=== PATIENT | female | born 1995 | race Caucasian/White ===

== ENCOUNTER 2022-01-17 17:17 | Emergency (ER) | payer OTHER, SELFPAY ==
--- NOTE | ~2022-01-17 | XR_ITS ---
EXAM: XR foot RT min 3V DATE: 01/17/2022 21:52 HISTORY: fall, neg ankle XR, pain along MT heads . COMPARISON: None available. FINDINGS: Normal mineralization. No fracture or dislocation. No lytic or blastic lesion. Joint space s and physes are maintained. No erosion or periosteal change. Soft tissue swelling over the forefoot. IMPRESSION: No acute osseous finding in the right foot. Reviewed, dictated and finalized at location K.
--- NOTE | ~2022-01-17 | XR_ITS ---
EXAM: XR ankle RT min 3V DATE: 01/17/2022 17:44 HISTORY: fall - pain . COMPARISON: None available. FINDINGS: Normal mineralization. No acute fracture or dislocation. No lytic or blastic lesion. Well- corticated ossific fragment in the lateral joint space may represent an old avulsion fracture fragmen t. Prominent os trigonum. Achilles and plantar enthesopathy. No erosion or periosteal change. Soft ti ssues within normal limits. IMPRESSION: No acute osseous finding in the right ankle. Reviewed, dictated and finalized at location K.
[2022-01-17 17:20] VITALS: BP 138/71; PULSE 101; RESP 18; TEMP 36.5; O2SAT 100
[2022-01-17] MEDS: KETOROLAC (*BKC) 60 MG/2 ML VIAL IM (21:39)
--- NOTE | 2022-01-17 21:47 | ED.LOWEXIN ---
HPI - Extremity Injury (Lower) General Chief Complaint: Extremity Injury, Lower Stated Complaint: right ankle injury Time Seen by Provider: 01/17/22 20:41 Source: patient Mode of arrival: ambulatory Limitations: no limitations History of Present Illness HPI Narrative: Patient is a 26-year-old female who presents the ED with report of right ankle/foot pain. Patient reports she was walking on an uneven sidewalk today when she tripped and fell, causing an inversion injury to her right ankle. She complains of pain and swelling to her lateral and anterior right ankle/foot since then. She has not taken anything for pain. No numbness, tingling. She also sustained abrasions to left knee which she bandaged prior to arrival. No significant left knee pain. Related Data Allergies Allergy/AdvReac Type Severity Reaction Status Date / Time No Known Allergies Allergy Verified 01/17/22 21:14 Review of Systems Review of Systems: CONSTITUTIONAL: Denies fever, chills, or sweats. SKIN: Reports abrasions to left knee. MUSCULOSKELETAL: Reports right ankle/foot pain. Denies L knee pain. NEUROLOGIC: Denies tingling, numbness, or weakness. All systems reviewed & are unremarkable except as noted in HPI and below PMFSH Past Medical History Medical History (Updated 01/17/22 @ 21:51 by Kassidy Cantu PA-C) Hypothyroidism PCOS (polycystic ovarian syndrome) Surgical History Surgical History (Updated 01/17/22 @ 21:49 by Kassidy Cantu PA-C) No pertinent past surgical history Social History Social History (Updated 01/17/22 @ 21:49 by Kassidy Cantu PA-C) Smoking status: Never smoker Exam Narrative: GENERAL: Well appearing, obese, non-toxic, in no acute distress. HEAD: Normocephalic, atraumatic. NECK: Supple. No adenopathy, no masses. RESPIRATORY: Airway patent, respirations nonlabored. CARDIOVASCULAR: Regular rate and rhythm without murmurs, rubs, or gallops. Pedal pulses 2+ and equal bilaterally. MUSCULOSKELETAL: Moves all extremities. Strength/ROM intact without gross deformities. TTP and mild swelling to lateral malleolus of R ankle. Tenderness extending anteriorly over R dorsal foot. Tenderness along R 5th MT and along 3rd-5th distal MTs/MTheads. SKIN: Warm, dry, normal color. No rashes. NEURO: A&O X3. Speech clear. Cranial nerves II-XII grossly intact. No ataxic movements. PSYCHIATRIC: Appropriate mood and affect. Normal interaction. Course Vital Signs Vital signs: Vital Signs Temperature 97.7 F 01/17/22 17:20 Pulse Rate 101 H 01/17/22 17:20 Respiratory Rate 18 01/17/22 17:20 Blood Pressure 138/71 01/17/22 17:20 Pulse Oximetry 100 01/17/22 17:20 Oxygen Delivery Room Air 01/17/22 17:20 Temperature 97.7 F 01/17/22 17:20 Pulse Rate 101 H 01/17/22 17:20 Respiratory Rate 18 01/17/22 17:20 Blood Pressure 138/71 01/17/22 17:20 Pulse Oximetry 100 01/17/22 17:20 Oxygen Delivery Room Air 01/17/22 17:20 MDM - Extremity Injury (Lower) MDM Narrative Medical decision making narrative: Patient presented to ED with report of right foot/ankle pain status post inversion injury that occurred just prior to arrival. Patient's injury is consistent with musculoskeletal etiology. No signs of neurologic or vascular compromise on physical examination. Compartments are soft without signs of compartment syndrome. Pain is consistent with exam and injury. XRs of R ankle and foot negative for any acute osseous abnormality. Patient given Toradol injection in the ED and Bennett wrap applied. Patient is felt to be stable for discharge home and further outpatient management and treatment. Discussed RICE treatment and reasons to return to the ED. Patient agrees to plan. Medical Records Attestation: I reviewed the patient's medical records. Imaging Data Attestation: I personally reviewed and interpreted this imaging study as follows: Radiologist's impression: ITS Impressions Ankle X-Ray
== END 2022-01-17 22:53 | disposition home or self-care (01) ==
PROVIDERS: Emergency Provider Emergency Medicine; PCP Family Medicine
DX: S93.401A Sprain of unspecified ligament of right ankle, initial encounter (principal); E03.9 Hypothyroidism, unspecified; W01.0XXA Fall on same level from slipping, tripping and stumbling without subsequent striking against object, initial encounter
CPT/HCPCS: 73610; 73630; 96372; 99283; J1885

== ENCOUNTER 2023-09-12 17:34 | Emergency (ER) | payer OTHER, SELFPAY ==
--- NOTE | ~2023-09-12 | CT_ITS ---
EXAMINATION: CT abdomen pelvis wo con DATE: 09/12/2023 23:19 INDICATION: Bilateral flank pain. Hematuria. TECHNIQUE: Computed tomography (CT) of the abdomen and pelvis was performed without intravenous contr ast. Automated exposure control and iterative reconstruction technique were employed. The dose-length product was 1110.51 mGy-cm. COMPARISON: None. FINDINGS: The visualized portions of the lung bases demonstrate minimal atelectasis on the left. No p leural effusion. The heart size is normal. No pericardial effusion. There is diffuse hepatic steatosi s. The liver, gallbladder, pancreas, adrenal glands, and kidneys are normal. There is a 2 mm stone in distal left ureter. There are no dilated loops of bowel. The appendix is normal. There are no pathol ogically enlarged lymph nodes. There is no free intraperitoneal fluid. There is mild thoracic spondyl osis. IMPRESSION: 1. 2 mm stone in distal left ureter. No hydronephrosis. Reviewed, dictated and finalized at location E.
[2023-09-12 17:37] VITALS: BP 127/81; PULSE 92; RESP 18; TEMP 36.4; O2SAT 100
--- NOTE | 2023-09-12 21:22 | ED.FEMALEGU ---
HPI - Female Genitourinary General Chief complaint: Urogenital-Female Stated complaint: kidney issues Time Seen by Provider: 09/12/23 21:08 History of Present Illness HPI Narrative: Patient is a 38-year-old female who presents to the emergency department this evening complaining of hematuria. Patient states that her symptoms started approximately 1 week ago and initially she noted some slight pink tinge to her urine, patient thought that maybe she was passing a small stone and was not having any pain so she did not think much of it. Today, patient noticed that her urine is completely bloody and she had some mild dysuria. Patient went to urgent care initially and was sent to our facility for further evaluation. Patient also admits that approximately 1 week ago she also started to develop some mild bilateral flank pain which is what made her that this was a possible kidney stone. Patient denies any history of kidney stones and states that she has never passed one. She denies any additional symptoms including nausea or vomiting, denies any abdominal pain and denies any fevers or chills. Related Data Allergies Allergy/AdvReac Type Severity Reaction Status Date / Time No Known Allergies Allergy Verified 01/17/22 21:14 Review of Systems Review of Systems: All systems are reviewed and are negative unless stated otherwise in the HPI. [facility] Past Medical History Medical History Hypothyroidism PCOS (polycystic ovarian syndrome) Surgical History Surgical History No pertinent past surgical history Social History Social History Smoking status: Never smoker Exam Narrative: General: Alert, awake, afebrile, in no acute distress. Cardiovascular: Regular rate and rhythm, no murmurs, rubs or gallops, no peripheral edema. Respiratory: Clear to auscultation bilaterally, no tachypnea, no wheezing, no rhonchi, no rubs, no respiratory distress. Abdomen: Soft, nontender, nondistended, no rebound, no guarding, no peritoneal signs. Musculoskeletal: No joint swelling or deformity, normal muscle tone. Skin: No rashes or petechia, no signs of infection. Psychiatric: Alert and oriented, normal behavior and judgment for situation. Neurological: Alert and oriented to person, place, and time. Follows all commands. No focal deficits, speech is clear and fluent. Course Vital Signs Vital signs: Vital Signs Temperature 97.6 F 09/12/23 17:37 Pulse Rate 92 09/12/23 17:37 Respiratory Rate 18 09/12/23 17:37 Blood Pressure 127/81 09/12/23 17:37 Pulse Oximetry 100 09/12/23 17:37 Temperature 97.9 F 09/12/23 21:58 Pulse Rate 84 09/12/23 21:58 Respiratory Rate 16 09/12/23 21:58 Blood Pressure 128/88 09/12/23 21:58 Pulse Oximetry 97 09/12/23 21:58 MDM - Female Genitourinary MDM Narrative Medical decision making narrative: The patient was evaluated by myself in the emergency department. History is obtained from patient who is an independent historian and physical exam was performed. External medical records were reviewed at this time. IV was established and pertinent tests were ordered. Laboratory results obtained revealing a leukocytosis of 12.4, otherwise unremarkable. Urinalysis revealed 3+ blood, 1+ leuk esterases, greater than 100 rbc's and 11-20 white blood cells. At this time, patient was administered 1 g of IV Rocephin. Imaging studies obtained included CT abdomen and pelvis without IV contrast which was independently interpreted by me revealing a 2 mm left kidney stone in the distal ureter without any hydronephrosis, which is pending final radiology interpretation. Differential diagnosis considerations include Nephrolithiasis, pyelonephritis and urinary tract infection. Comorbidities impacting this visit include none. I
[2023-09-12 21:58] VITALS: BP 128/88; PULSE 84; RESP 16; TEMP 36.6; O2SAT 97
[2023-09-12] MEDS: SODIUM CHLORIDE 0.9% IV 1,000 ML 999 ML IV CONT (22:09)
[2023-09-12] MEDS: KETOROLAC 15 MG/ML VIAL (*BKC) IV PUSH (22:11)
[2023-09-12 22:12] LABS: Basophils Absolute Auto 0.1 K/mm3 (0.0-0.1); Basophils Percent Auto 0.8 % (0.2-1.2); Eosinophils Absolute Auto 0.2 K/mm3 (0-0.3); Eosinophils Percent Auto 1.7 % (0-4.4); Hematocrit 44.8 % (37.0-47.0); Hemoglobin 14.3 g/dL (12.0-15.0); Immature Granulocyte Absolute 0.05 K/mm3 (0.00-0.031); Immature Granulocyte Percent A 0.4 % (0-0.5); Lymphocytes Absolute Auto 4.12 K/mm3 (0.9-3.2); Lymphocytes Percent Auto 33.1 % (18.3-44.2); Mean Corpuscular HGB Conc 31.9 g/dl (32-36); Mean Corpuscular Hemoglobin 27.7 pg (26-34); Mean Corpuscular Volume 86.8 fl (80-100); Mean Platelet Volume 8.4 fl (7.4-10.4); Monocytes Absolute Auto 0.7 K/mm3 (0.1-0.6); Monocytes Percent Auto 5.3 % (2.6-8.5); Neutrophils Absolute Auto 7.3 K/mm3 (1.3-6.7); Neutrophils Percent Auto 58.7 % (45.5-73.1); Platelet Count Result 379 k/mm3 (150-375); Red Blood Count 5.16 M/mm3 (4.2-5.4); Red Cell Distribution Width 14.7 % (11.5-14.5); White Blood Count 12.4 K/mm3 (4.5-10.0)
[2023-09-12 22:24] LABS: Alanine Aminotransferase 26 U/L (6-35); Alkaline Phosphatase 85 U/L (38-126); Anion Gap 11 mmol/L (4-12); Aspartate Amino Transferase 26 U/L (14-36); Bilirubin,Total 0.6 mg/dL (0.2-1.3); Blood Urea Nitrogen 12 mg/dL (7-17); Calcium 10.2 mg/dL (8.4-10.2); Carbon Dioxide 24 mmol/L (22-30); Chloride 103 mmol/L (98-107); Estimated CRCL calculation 132 ml/min; Estimated Glomerular Filt Rate > 60; Glucose 87 mg/dL (65-110); Potassium 3.9 mmol/L (3.4-5.0); Sodium 138 mmol/L (137-145)
[2023-09-12 22:25] LABS: Appearance Urine Turbid (Clear); Bacteria Urine None Seen /hpf; Bilirubin Urine Negative (Negative); Blood Urine 3+ (Negative); Glucose Urine UA Negative (Negative); Ketones Urine Negative (Negative); Leukocyte Esterase Ur 1+ LEU/UL (Negative); Need Manual Microscopic Reviewed; Nitrate Urine Negative (Negative); Non Pathogenic Casts 0-2; Protein Urine 2+ mg/dL (Negative); RBC Urine >100 /hpf (0-2); Specific Grav Ur 1.017 (1.001-1.035); Squamous Epithelial Cell Urine None Seen /hpf (Few); Urobilinogen Urine 0.2 mg/dL (<2.0)
[2023-09-12 22:27] LABS: Add Urine Microscopic? YES; Color Urine Dark Yellow (Yellow); Lipase 94 U/L (23-300)
[2023-09-12 22:28] LABS: Lactic Acid Reflex 1.3 mmol/L (0.7-2.0)
[2023-09-12 23:05] LABS: SPREG INTERNAL CONTROL Positive; Serum Qual hCG Negative
[2023-09-12 23:51] VITALS: BP 129/88; PULSE 86; RESP 16; O2SAT 99
== END 2023-09-12 23:53 | disposition home or self-care (01) ==
LOC: ANHED 21:37
PROVIDERS: Emergency Provider Emergency Medicine; PCP Family Medicine
DX: N20.1 Calculus of ureter (principal); R31.9 Hematuria, unspecified; E03.9 Hypothyroidism, unspecified; E28.2 Polycystic ovarian syndrome
CPT/HCPCS: 36415; 74176; 80053; 81001; 82248; 83605; 83690; 84703; 85025; 87086; 87088; 96361; 96365; 96375; 99284; J0696; J1885; J7030